=== PATIENT | male | born 1940 | race Caucasian/White ===

== ENCOUNTER → 2019-12-05 16:46 | Outpatient (CLI) | payer MEDICARE, SELFPAY ==
[2019-12-05 16:48] LABS: Adenovirus F 40/41, stool Not Detected (NotDetected); Astrovirus Not Detected (NotDetected); Campylobacter Not Detected (NotDetected); Clostridium Difficile A/B, PCR Not Detected (NotDetected); Cryptosporidium Not Detected (NotDetected); Cyclospora Cayetanesis Not Detected (NotDetected); Entamoeba histolytica Not Detected (NotDetected); Enteroaggregative E coli Not Detected (NotDetected); Enteropathogenic E coli Not Detected (NotDetected); Enterotoxigenic E coli Not Detected (NotDetected); Giardia lamblia Not Detected (NotDetected); Norovirus Not Detected (NotDetected); Plesimonas Shigalloides, PCR Not Detected (NotDetected); Rotavirus A Not Detected (NotDetected); Salmonella, PCR Not Detected (NotDetected); Sapovirus Not Detected (NotDetected); Shiga-like toxin E coli Not Detected (NotDetected); Shigella Enterovasive E coli Not Detected (NotDetected); Vibrio Cholerae Not Detected (NotDetected); Vibrio, PCR Not Detected (NotDetected); Yersinia Entercolitica, PCR Not Detected (NotDetected)
[2019-12-05 18:09] LABS: Basophils # 0.1 K/mm3 (0-0.2); Basophils % 0.8 % (0.1-2.0); Eosinophils # 0.3 K/mm3 (0.0-0.4); Eosinophils % 1.8 % (0.1-12.0); Hematocrit 48.2 % (42.0-52.0); Hemoglobin 15.1 g/dL (14.1-18.0); Lymphocytes # 1.7 K/mm3 (0.7-4.5); Lymphocytes % 10.9 % (10-50); Mean Corpuscular HGB Conc 31.3 g/dL (31.8-35.4); Mean Corpuscular Hemoglobin 30.5 pg (27.0-31.2); Mean Corpuscular Volume 97.2 fl (80-94); Mean Platelet Volume 10.2 fl (7.4-10.4); Monocytes # 0.8 K/mm3 (0.1-1.0); Monocytes % 5.2 % (1.7-9.3); Neutrophils # 12.8 K/mm3 (1.8-7.8); Neutrophils % 81.2 % (37.0-80.0); Platelet Count 463 K/mm3 (142-424); Red Blood Count 4.96 M/mm3 (4.60-6.20); Red Cell Distribution Width 13.1 % (11.5-17.5); White Blood Count 15.7 K/mm3 (4.8-10.8)
[2019-12-05 18:35] LABS: Chloride 98 mmol/L (98-107); Sodium 135 mmol/L (136-145)
[2019-12-05 18:36] LABS: MANUAL DIFFERENTIAL MANUAL DIFFERENTIAL (MANUAL DIFF); Potassium 4.6 mmoL/L (3.5-5.1)
[2019-12-05 18:38] LABS: Alanine Aminotransferase 90 U/L (12-78); Alkaline Phosphatase 129 U/L (38-126); Amylase 68 U/L (30-110); Anion Gap 13.6 mEq/L (5-15); Aspartate Amino Transferase 71 U/L (17-59); Bilirubin,Total 0.3 mg/dl (0.2-1.3); Blood Urea Nitrogen 19 mg/dl (9-20); Calcium 9.2 mg/dl (8.4-10.2); Carbon Dioxide 28 mmol/L (22.0-30.0); Estimated Glomerular Filt Rate 81 ml/min (>60); GFR (African American) 98 ML/MIN (>60); Glucose 143 mg/dl (74-100); HDL Cholesterol 44 mg/dl (40-60); Lipase 358 U/L (23-300)
[2019-12-05 18:39] LABS: Albumin Level 3.6 g/dl (3.5-5.0); Albumin/Globulin Ratio 1.3 (1.1-1.8); Chol/HDL Ratio 2.2 (1-3.5); Cholesterol 96 mg/dl (140-200); Globulin 2.8 g/dL (1.3-3.2); Total Protein,Serum 6.4 g/dl (6.3-8.2); Triglycerides 106 mg/dl (30-150); VLDL Cholesterol 21 mg/dL (0-40)
[2019-12-05 18:50] LABS: Direct LDL Cholesterol 39.49 mg/dL (100-129)
[2019-12-05 21:40] LABS: Lymphocytes % 12 % (10-50); Monocytes % 6 % (2-9); Neutrophils % 82 % (42-76); Total Cells Counted 100
[2019-12-05 21:41] LABS: Platelet Estimate Slight Increase; RBC Morphology Normal
== END ==
PROVIDERS: Visit Provider Emergency Medicine
DX: R19.7 Diarrhea, unspecified (principal); R69 Illness, unspecified; E78.5 Hyperlipidemia, unspecified
CPT/HCPCS: 80053; 80061; 82150; 83690; 85007; 85025; 87506

== ENCOUNTER → 2019-12-13 08:05 | Outpatient (CLI) | payer MEDICARE, SELFPAY ==
--- NOTE | 2019-12-13 08:05 | US_ITS ---
PROCEDURE: US GALLBLADDER CLINICAL INDICATION: diarrhea Nausea and vomiting COMPARISON: No exams were available for comparison FINDINGS: Pancreas: Pancreas is not well delineated due to overlying bowel gas and may be better evaluated with a CT or MRI if clinically desired Liver: Unremarkable. There is appropriate direction of blood flow within a non dilated portal vein. Right kidney: There is mild cortical thinning of the right kidney. No hydronephrosis Gallbladder: Wall echo shadow sign noted the gallbladder consistent with gallbladder filled with stones. Common bile duct is normal at 2 mm. IMPRESSION: Cholelithiasis Dictated by: Ottoniel Perales MD 12/13/2019 17:49 Electronically signed by Ottoniel Perales MD in [place] 12/13/2019 17:49
== END ==
PROVIDERS: PCP Emergency Medicine; Referring Provider Surgery; Visit Provider Emergency Medicine
DX: K80.20 Calculus of gallbladder without cholecystitis without obstruction (principal); K85.90 Acute pancreatitis without necrosis or infection, unspecified; R69 Illness, unspecified
CPT/HCPCS: 76705

== ENCOUNTER → 2021-04-29 17:40 | Outpatient (CLI) | payer MEDICARE, SELFPAY ==
[2021-04-29 18:40] LABS: Chloride 104 mmol/L (98-107)
[2021-04-29 18:41] LABS: Potassium 4.2 mmoL/L (3.5-5.1); Sodium 143 mmol/L (136-145)
[2021-04-29 18:43] LABS: Alanine Aminotransferase 21 U/L (12-78); Aspartate Amino Transferase 39 U/L (17-59); Blood Urea Nitrogen 25 mg/dl (9-20); Estimated Glomerular Filt Rate 81 ml/min (>60); GFR (African American) 98 ML/MIN (>60)
[2021-04-29 18:44] LABS: Albumin/Globulin Ratio 1.4 (1.1-1.8); Alkaline Phosphatase 138 U/L (38-126); Anion Gap 15.2 mEq/L (5-15); Bilirubin,Total 0.3 mg/dl (0.2-1.3); Calcium 9.2 mg/dl (8.4-10.2); Carbon Dioxide 28 mmol/L (22.0-30.0); Chol/HDL Ratio 2.8 (1-3.5); Cholesterol 121 mg/dl (140-200); Globulin 2.8 g/dL (1.3-3.2); Glucose 144 mg/dl (74-100); HDL Cholesterol 44 mg/dl (40-60); Total Protein,Serum 6.8 g/dl (6.3-8.2); Triglycerides 136 mg/dl (30-150); VLDL Cholesterol 27 mg/dL (0-40)
[2021-04-29 18:46] LABS: Basophils # 0.1 K/mm3 (0-0.2); Basophils % 0.6 % (0.1-2.0); Eosinophils # 0.3 K/mm3 (0.0-0.4); Eosinophils % 2.5 % (0.1-12.0); Hematocrit 46.2 % (42.0-52.0); Hemoglobin 15.1 g/dL (14.1-18.0); Lymphocytes # 1.8 K/mm3 (0.7-4.5); Lymphocytes % 18.2 % (10-50); Mean Corpuscular HGB Conc 32.6 g/dL (31.8-35.4); Mean Corpuscular Hemoglobin 31.9 pg (27.0-31.2); Mean Corpuscular Volume 97.7 fl (80-94); Mean Platelet Volume 10.5 fl (7.4-10.4); Monocytes # 0.7 K/mm3 (0.1-1.0); Monocytes % 6.9 % (1.7-9.3); Neutrophils # 7.2 K/mm3 (1.8-7.8); Neutrophils % 71.7 % (37.0-80.0); Platelet Count 274 K/mm3 (142-424); Red Blood Count 4.72 M/mm3 (4.60-6.20); Red Cell Distribution Width 13.8 % (11.5-17.5); White Blood Count 10.1 K/mm3 (4.8-10.8)
[2021-04-29 18:56] LABS: Direct LDL Cholesterol 47.48 mg/dL (100-129)
[2021-04-29 19:02] LABS: Free T4 (Free Thyroxine) 0.92 ng/dl (0.78-2.19)
[2021-04-29 19:15] LABS: Thyroid Stimulating Hormone 3.63 uIU/mL (0.465-4.68)
== END ==
PROVIDERS: Visit Provider Emergency Medicine
DX: E78.5 Hyperlipidemia, unspecified (principal); R53.83 Other fatigue; R01.1 Cardiac murmur, unspecified
CPT/HCPCS: 80053; 80061; 84439; 84443; 85025

== ENCOUNTER → 2021-05-17 12:55 | Outpatient (CLI) | payer MEDICARE, SELFPAY ==
--- NOTE | 2021-05-17 12:56 | CA_ITS ---
APPROVED REPORT EXAM: Comprehensive 2D, Doppler, and color-flow Echocardiogram Dental Lab Technician: Waleska Ratliff RT(R) Ht: 5 ft 11 in Wt: 235lbs BSA: 2.26 BP: 124/72 mmHg Indications: smoker, obesity, SOB, HTN, hyperlipidemia, pedal edema, hx CABG, murmur 2D Dimensions LVOT 2.03 cm (M/F) 1.5-2.5 LA Volume 58.80 mL LA Volume Index 26.01 mL/m2 (M/F) 16-34 M-Mode Dimensions RVDd 2.59 cm (0.9-2.6) LA Diam 3.75 cm (1.9-4.0) LVDd 4.88 cm (3.5-5.7) Ao Diam 2.81 cm (2.0-3.7) LVDs 3.48 cm (3.5-5.7) IVSd 0.98 cm (0.6-1.1) PWd 0.98 cm (0.6-1.1) EF (Teich) 55.10% FS 28.70% EDV (Teich) 111.70 mL ESV (Teich) 50.20 mL LV Diastology E Decel Time 247.00 (160-240 msec) E/A Ratio 2.3 MED E' 7.40 (< 7 cm/sec) E'/MED E' Ratio 16.53 (>14) LAT E' 9.20 (<10 cm/sec) E/LAT E' Ratio 13.29 (>14) Mitral Valve MV E Max Dwain. 122.00 (40-130 cm/s) MV A Velocity 53.00 (40-130 cm/s) E/A Ratio 2.30 MV Decel. Time 247.00 (160-240 ms) MV PHT 72.00 ms Left Ventricle Left atrium is mildly enlarged, left ventricle is normal size, visually estimated ejection fraction of 50% with no regional wall motion abnormality, there is abnormal septal motion. Diastolic parameters are inconclusive. Right Ventricle Right atrium and right ventricle are mildly enlarged with normal contractility. Aortic Valve Aortic valve is minimally thickened and fibrosed, there is no aortic stenosis or aortic insufficiency. Mitral Valve Mitral valve leaflets are minimally thickened, there is mild buckling of the anterior mitral leaflet, there is no mitral stenosis, there is trace mitral regurgitation. Tricuspid Valve Tricuspid valve grossly normal, there is trace tricuspid regurgitation. Pulmonic Valve Pulmonic valve is poorly visualized. Great Vessels Aortic root is normal size. Inferior vena cava is normal size with normal inspiratory collapse. Pericardium No significant pericardial effusion noted. Conclusion 1. Biatrial enlargement, normal left ventricular size, visually estimated ejection fraction 50%, there is abnormal septal motion, there is no regional wall motion abnormality, diastolic parameters are inconclusive. 2. Mildly enlarged right ventricle with normal contractility. 3. Trace mitral and tricuspid regurgitation. 4. No significant pericardial effusion noted. 5. Inferior vena cava is normal size with normal inspiratory collapse. Electronically signed by : Ravi Rodriguez MD 05/19/2021 18:01:07
== END ==
PROVIDERS: PCP Nurse Practitioner Family; Visit Provider Emergency Medicine
DX: R01.1 Cardiac murmur, unspecified (principal)
CPT/HCPCS: 93306

== ENCOUNTER 2021-09-06 10:03 | Emergency (ER) | payer MEDICARE, SELFPAY ==
[2021-09-06 10:05] VITALS: BP 146/65; PULSE 89; RESP 18; TEMP 36.6; O2SAT 97; BMI 33.5
--- NOTE | 2021-09-06 10:15 | [facility].EDGENADL ---
ED Disposition Clinical Impression: Pulmonary mass, Liver mass Disposition: Home, Self-Care Condition on Discharge: Fair Additional Instructions: Follow-up with Dr. Marquis for further evaluation and care. Referrals: Selvin Marquis MD [Primary Care Provider] - - Critical Care Critical Care Time: No Attestation: On 09/06/21, the high probability of a clinically significant, sudden or life threatening deterioration of the following system(s) required my full and direct attention, intervention and personal management. The time I documented below is in addition to time spent performing reported procedures but includes the following listed in this critical care notation. Medical Decision Making - David Inquiry Pt receiving controlled substance: No Vital Signs: 09/06/21 10:05 09/06/21 11:18 Temperature 97.8 F Temperature Source Oral Pulse Rate 81 Pulse Rate [Right Radial] 89 Respiratory Rate 18 Blood Pressure 126/66 Blood Pressure [Right Arm] 146/65 H Blood Pressure Mean [Right Arm] 92 Blood Pressure Source [Right Arm] Automatic Cuff Blood Pressure Position [Right Arm] Sitting 02 Sat by Pulse Oximetry 97 96 Oxygen Delivery Method Room Air Room Air - Lab Data Lab Results 09/06/21 10:25: WBC 10.1, RBC 3.80 L, Hgb 11.9 L, Hct 37.6 L, MCV 98.9 H, MCH 31.2, MCHC 31.6 L, RDW 15.2, Plt Count 347, MPV 8.4, Neut % (Auto) 76.5, Lymph % (Auto) 11.7, Winston % (Auto) 6.1, Eos % (Auto) 1.4, Baso % (Auto) 4.3 H, Neut # (Auto) 7.7, Lymph # (Auto) 1.2, Winston # (Auto) 0.6, Eos # (Auto) 0.1, Baso # (Auto) 0.4 H 09/06/21 10:25: Sodium 139, Potassium 4.4, Chloride 101, Carbon Dioxide 35 H, Anion Gap 7.4, BUN 22 H, Creatinine 0.90, Estimated Creat Clear 88, Estimated GFR 81, Est GFR ( Amer) 98, Glucose 107 H, Calcium 9.4, Total Bilirubin 0.7, AST 84 H, ALT 76, Alkaline Phosphatase 227 H, Total Protein 7.5, Albumin 4.1, Globulin 3.4 H, Albumin/Globulin Ratio 1.2 Result diagrams: 09/06/21 10:25 09/06/21 10:25 Orders (Tests/Meds): ED MEDICATIONS Discontinued Medications Generic Name Dose Route Start Last Admin Trade Name Gillian PRN Reason Stop Dose Admin Iopamidol 75 ml 09/06/21 11:20 09/06/21 11:20 Iopamidol-370 (76%);100ml Bottle IV 09/06/21 11:21 75 ml ONCE ONE Administration Sodium Chloride 10 ml 09/06/21 11:20 09/06/21 11:20 Sodium Chloride 0.9% 10ml Syr (Rad Only) IV 09/06/21 11:21 10 ml ONCE ONE Administration ORDERS Category Date Time Status CT abdomen pelvis w con Stat Cat Scan 09/06/21 10:[address] chest w con Stat Cat Scan 09/06/21 10:22 Taken - CT Data CT Scan: Abdomen, Pelvis, Chest Time Received: 12:[address] Reviewed: Yes: I have viewed the radiologist's interpretation Findings Narrative: Preliminary reports: Abdomen: Multiple hepatic lesions concerning for metastasis. Chest: Multiple pleural and parenchymal masses in the right lower lobe of the lung concerning for neoplasm. - Physician Consults Physician Consulted: Kandis Time: 12:55 Reason -: Pt condition Comment/Response: He will text patient's son and they will arrange follow-up plans this weekend. Medical Decision Narrative: Patient refuses any prescriptions for pain medication General Adult HPI - General Stated complaint: upper shoulder and side pain, no recent accident Time Seen by Provider: 09/06/21 10:15 - History of Present Illness HPI narrative: Patient states that he fell 2 weeks ago. He slipped in mud. He did not fall all the way to the ground. He says that he hit his arm on a propane tank and was still have vertigo . Since then he has pain in the right side of his chest that starts at the axillary area and goes all the way down into his right abdomen. Denies shortness of breath. Denies hemoptysis. Denies vomiting. He has been eating normally. Denies pain in his right shoulder and says he has no pain with movement of his right arm. He has a small scab on his r
--- NOTE | 2021-09-06 10:21 | CT_ITS ---
FINAL REPORT TECHNIQUE: After the administration of intravenous contrast, axial images were obtained through the abdomen and pelvis by computed tomography. The study was performed with techniques to keep radiation dose as low as reasonably achievable, (ALARA). Individual dose reduction techniques using automated exposure control or adjustment of mA and/or kV according to the patient's size were employed. CLINICAL HISTORY: fall, injury FINDINGS: Abdomen: There are a multitude of low-attenuation lesions throughout the liver. Largest lesion measures up to 5.7 x 4.5 cm in the right lobe of the liver. The gallbladder is absent. There are calcified granulomas in the spleen. The pancreas and adrenal glands appear unremarkable. There are benign-appearing cysts in the kidneys. The aorta is normal in caliber. There is no free fluid or adenopathy. Pelvis: There is moderate descending and sigmoid colon diverticulosis without evidence of diverticulitis. The appendix is not identified. The urinary bladder is unremarkable. There is no free fluid or adenopathy. IMPRESSION: Multiple hepatic lesions highly concerning for metastasis. Please see report of chest CT from the same day. PET scan could further evaluate. Reviewed, Interpreted and Dictated by Jarad Raymond MD Transcribed by Timur King Authenticated by Jarad Raymond MD on 09/06/2021 12:01:11 PM [facility]
--- NOTE | 2021-09-06 10:22 | CT_ITS ---
FINAL REPORT TECHNIQUE: After the administration of intravenous contrast, axial images through the chest were performed by computed tomography.This study was performed with techniques to keep radiation doses as low as reasonably achievable, (ALARA). Individualized dose reduction techniques using automated exposure control or adjustment of mA and/or kV according to the patient''s size were employed. CLINICAL HISTORY: fall, injury, rib pain FINDINGS: There is streak artifact from multiple sternotomy wires. There is no axillary adenopathy. There is mediastinal adenopathy greater than expected measuring up to 2 cm. A right hilar lymph node measures 2.5 cm. The heart size is normal. There is no pericardial or pleural effusion. There are advanced changes of centrilobular emphysema. There are multiple pleural based and parenchymal masses in the right lower lobe of the lung measuring up to 2.2 cm. An intrapulmonary mass on image 61 measures 1.9 x 1.3 cm. More superior to this is an intrapulmonary mass measuring 1.8 x 1.4 cm on image 48. There is an old left 4th rib fracture. There is no acute rib fracture. There is no pneumothorax. IMPRESSION: Multiple pleural and parenchymal masses in the right lower lobe of the lung concerning for neoplasm. Recommend PET scan. Please see report from abdomen and pelvis CT from the same day. Reviewed, Interpreted and Dictated by Jarad Raymond MD Transcribed by Timur King Authenticated by Jarad Raymond MD on 09/06/2021 12:03:[address] [facility]
[2021-09-06 10:38] LABS: Basophils # 0.4 K/mm3 (0-0.2); Basophils % 4.3 % (0.1-2.0); Eosinophils # 0.1 K/mm3 (0.0-0.4); Eosinophils % 1.4 % (0.1-12.0); Hematocrit 37.6 % (42.0-52.0); Hemoglobin 11.9 g/dL (14.1-18.0); Lymphocytes # 1.2 K/mm3 (0.7-4.5); Lymphocytes % 11.7 % (10-50); Mean Corpuscular HGB Conc 31.6 g/dL (31.8-35.4); Mean Corpuscular Hemoglobin 31.2 pg (27.0-31.2); Mean Corpuscular Volume 98.9 fl (80-94); Mean Platelet Volume 8.4 fl (7.4-10.4); Monocytes # 0.6 K/mm3 (0.1-1.0); Monocytes % 6.1 % (1.7-9.3); Neutrophils # 7.7 K/mm3 (1.8-7.8); Neutrophils % 76.5 % (37.0-80.0); Platelet Count 347 K/mm3 (142-424); Red Cell Distribution Width 15.2 % (11.5-17.5); White Blood Count 10.1 K/mm3 (4.8-10.8)
[2021-09-06 10:41] LABS: Chloride 101 mmol/L (98-107); Potassium 4.4 mmoL/L (3.5-5.1); Sodium 139 mmol/L (136-145)
[2021-09-06 10:43] LABS: Blood Urea Nitrogen 22 mg/dl (9-20); Creatinine Clearance Estimated 88 mL/min (50-200); Estimated Glomerular Filt Rate 81 ml/min (>60); GFR (African American) 98 ML/MIN (>60)
[2021-09-06 10:44] LABS: Alanine Aminotransferase 76 U/L (12-78); Albumin Level 4.1 g/dl (3.5-5.0); Albumin/Globulin Ratio 1.2 (1.1-1.8); Alkaline Phosphatase 227 U/L (38-126); Anion Gap 7.4 mEq/L (5-15); Aspartate Amino Transferase 84 U/L (17-59); Bilirubin,Total 0.7 mg/dl (0.2-1.3); Calcium 9.4 mg/dl (8.4-10.2); Carbon Dioxide 35 mmol/L (22.0-30.0); Globulin 3.4 g/dL (1.3-3.2); Glucose 107 mg/dl (74-100); Total Protein,Serum 7.5 g/dl (6.3-8.2)
--- NOTE | 2021-09-06 11:15 | PC.NURSE ---
Patient back to radiology
[2021-09-06 11:18] VITALS: BP 126/66; PULSE 81; O2SAT 96
--- NOTE | 2021-09-06 12:48 | PC.NURSE ---
EILEEN ESPOSITO speaking with Dr. Marquis
[2021-09-06 13:04] VITALS: BP 146/72; PULSE 84; RESP 18; TEMP 36.6; O2SAT 98
== END 2021-09-06 13:04 | disposition home or self-care (01) ==
PROVIDERS: Emergency Provider Emergency Medicine; PCP Emergency Medicine
DX: R91.8 Other nonspecific abnormal finding of lung field (principal); R16.0 Hepatomegaly, not elsewhere classified; I25.10 Atherosclerotic heart disease of native coronary artery without angina pectoris; I10 Essential (primary) hypertension; E78.5 Hyperlipidemia, unspecified; F17.210 Nicotine dependence, cigarettes, uncomplicated
CPT/HCPCS: 71260; 74177; 80053; 85025; 99282; Q9967

== ENCOUNTER → 2021-09-12 11:42 | Outpatient (CLI) | payer MEDICARE, SELFPAY ==
[2021-09-12 12:15] LABS: Basophils # 0.8 K/mm3 (0-0.2); Basophils % 5.9 % (0.1-2.0); Eosinophils # 0.1 K/mm3 (0.0-0.4); Hematocrit 38.1 % (42.0-52.0); Hemoglobin 11.7 g/dL (14.1-18.0); Lymphocytes # 1.8 K/mm3 (0.7-4.5); Lymphocytes % 13.2 % (10-50); Mean Corpuscular HGB Conc 30.6 g/dL (31.8-35.4); Mean Corpuscular Hemoglobin 31.2 pg (27.0-31.2); Mean Corpuscular Volume 102.2 fl (80-94); Mean Platelet Volume 8.2 fl (7.4-10.4); Monocytes # 0.7 K/mm3 (0.1-1.0); Monocytes % 5.2 % (1.7-9.3); Neutrophils # 10.8 K/mm3 (1.8-7.8); Neutrophils % 80.5 % (37.0-80.0); Platelet Count 341 K/mm3 (142-424); Red Blood Count 3.73 M/mm3 (4.60-6.20); Red Cell Distribution Width 15.6 % (11.5-17.5); White Blood Count 13.4 K/mm3 (4.8-10.8)
[2021-09-12 12:22] LABS: INR 1.26 (0.9-1.1)
[2021-09-12 15:39] LABS: Chloride 100 mmol/L (98-107); Potassium 4.6 mmoL/L (3.5-5.1); Sodium 134 mmol/L (136-145)
[2021-09-12 15:41] LABS: Blood Urea Nitrogen 32 mg/dl (9-20); Estimated Glomerular Filt Rate 72 ml/min (>60); GFR (African American) 87 ML/MIN (>60)
[2021-09-12 15:42] LABS: Alanine Aminotransferase 75 U/L (12-78); Albumin Level 3.9 g/dl (3.5-5.0); Albumin/Globulin Ratio 1.4 (1.1-1.8); Alkaline Phosphatase 342 U/L (38-126); Anion Gap 6.6 mEq/L (5-15); Aspartate Amino Transferase 93 U/L (17-59); Bilirubin,Total 0.9 mg/dl (0.2-1.3); Calcium 9.5 mg/dl (8.4-10.2); Carbon Dioxide 32 mmol/L (22.0-30.0); Globulin 2.8 g/dL (1.3-3.2); Glucose 107 mg/dl (74-100); Total Protein,Serum 6.7 g/dl (6.3-8.2)
== END ==
PROVIDERS: PCP Emergency Medicine; Visit Provider Internal Medicine Pulmonary Disease
DX: J45.909 Unspecified asthma, uncomplicated (principal); K76.9 Liver disease, unspecified; R59.0 Localized enlarged lymph nodes; R91.8 Other nonspecific abnormal finding of lung field
CPT/HCPCS: 36415; 80053; 85025; 85610